=== PATIENT | male | born 1965 | race Caucasian/White ===

== ENCOUNTER 2020-02-18 14:17 | Inpatient (IN) | payer SELFPAY ==
[2020-02-18 14:55] LABS: INTERNATIONAL RATION (INR) 0.97
[2020-02-18 14:56] LABS: PARTIAL THROMBOPLASTIN TIME 23.1 SEC (23.5-35.8)
[2020-02-18 14:59] LABS: ABSOLUTE BASOPHILS # (AUTO) 0.1 10^3/uL (0.0-0.2); ABSOLUTE LYMPHOCYTES (AUTO) 2.1 10^3/uL (0.5-4.7); ABSOLUTE MONOCYTES (AUTO) 1.6 10^3/uL (0.1-1.4); ABSOLUTE NEUT (AUTO) 12.2 10^3/uL (1.7-8.2); BASOPHILS % (AUTO) 0.7 % (0-2); EOSINOPHILS % (AUTO) 0.1 % (0-6); HEMATOCRIT 46.2 % (37.9-51.0); HEMOGLOBIN 16.1 g/dL (13.5-17.0); LYMPHOCYTES % (AUTO) 12.9 % (13-45); MEAN CORPUSCULAR HEMOGLOBIN 28.4 pg (27.0-33.4); MEAN CORPUSCULAR HGB CONC 34.9 g/dL (32.0-36.0); MEAN CORPUSCULAR VOLUME 81 fl (80-97); PLATELET COUNT 243 10^3/uL (150-450); PROTHROMBIN TIME 12.9 SEC (11.4-15.4); RED BLOOD COUNT 5.68 10^6/uL (4.35-5.55); RED CELL DISTRIBUTION WIDTH 14.2 % (11.5-14.0); SEGMENTED NEUTROPHILS % (AUTO) 76.3 % (42-78); TOTAL CELLS COUNTED % (AUTO) 100 %
--- NOTE | 2020-02-18 15:07 | RADIOLOGY REPORT (SQ) ---
EXAM DESCRIPTION: CHEST SINGLE VIEW IMAGES COMPLETED DATE/TIME: 02/18/2020 2:58 pm REASON FOR STUDY: unilateral weakness COMPARISON: None. EXAM PARAMETERS: NUMBER OF VIEWS: One view. TECHNIQUE: Single frontal radiographic view of the chest acquired. RADIATION DOSE: NA LIMITATIONS: None. FINDINGS: LUNGS AND PLEURA: No opacities, masses or pneumothorax. No pleural effusion. MEDIASTINUM AND HILAR STRUCTURES: No masses. Contour normal. HEART AND VASCULAR STRUCTURES: Heart normal in size. Normal vasculature. BONES: No acute findings. HARDWARE: None in the chest. OTHER: No other significant finding. IMPRESSION: NO ACUTE RADIOGRAPHIC FINDING IN THE CHEST. TECHNICAL DOCUMENTATION: JOB ID: [id number] 2010 [employer]- All Rights Reserved Reading location - IP/workstation name: [email or web address]
--- NOTE | 2020-02-18 15:07 | RADIOLOGY REPORT (SQ) ---
EXAM DESCRIPTION: CT HEAD WITHOUT IMAGES COMPLETED DATE/TIME: 02/18/2020 2:56 pm REASON FOR STUDY: unilateral weakness COMPARISON: None. TECHNIQUE: Axial images acquired through the brain without intravenous contrast. Images reviewed wi th bone, brain and subdural windows. Additional sagittal and coronal reconstructions were generated. Images stored on PACS. All CT scanners at this facility use dose modulation, iterative reconstruction, and/or weight based d osing when appropriate to reduce radiation dose to as low as reasonably achievable (ALARA). [facility]: Dose Right [facility]: CareDose [facility]: Dose Right [facility]: Teradose 4D [facility]: Site9 RADIATION DOSE: CT Rad equipment meets quality standard of care and radiation dose reduction techniq ues were employed. CTDIvol: 53.2 mGy. DLP: 1070 mGy-cm. mGy. LIMITATIONS: None. FINDINGS: VENTRICLES: Prominent. CEREBRUM: No masses. No hemorrhage. No midline shift. Areas of low density in the white matter mos t likely due to chronic micro-vascular ischemic change. No evidence for acute infarction. CEREBELLUM: Bilateral decreased attenuation, left greater than right. No hemorrhage. EXTRAAXIAL SPACES: Mild age-related involutional change. No fluid collections. No masses. ORBITS AND GLOBE: No intra- or extraconal masses. Normal contour of globe without masses. CALVARIUM: No fracture. PARANASAL SINUSES: No fluid or mucosal thickening. SOFT TISSUES: No mass or hematoma. OTHER: No other significant finding. IMPRESSION: DECREASED ATTENUATION IN THE CEREBELLUM, LEFT GREATER THAN RIGHT. THIS COULD BE DUE TO INFARCT, OLD VERSUS RECENT. WOULD RECOMMEND FOLLOW-UP MRI OF THE BRAIN. EVIDENCE OF ACUTE STROKE: NO. TECHNICAL DOCUMENTATION: JOB ID: [id number] Quality ID # [id number]: Final reports with documentation of one or more dose reduction techniques (e.g., Au tomated exposure control, adjustment of the mA and/or kV according to patient size, use of iterative reconstruction technique) 2010 [employer]- All Rights Reserved Reading location - IP/workstation name: [email or web address]
[2020-02-18 15:15] LABS: ALBUMIN 4.5 g/dL (3.5-5.0); ALKALINE PHOSPHATASE 86 U/L (38-126); ANION GAP 9 (5-19); ASPARTATE AMINO TRANSFERASE 18 U/L (17-59); BILIRUBIN,DIRECT 0.1 mg/dL (0.0-0.4); BILIRUBIN,TOTAL 0.8 mg/dL (0.2-1.3); BLOOD UREA NITROGEN 22 mg/dL (7-20); CALCIUM 9.4 mg/dL (8.4-10.2); CARBON DIOXIDE 24 mmol/L (22-30); CHLORIDE 104 mmol/L (98-107); CREATINE KINASE 164 U/L (55-170); GLUCOSE 111 mg/dL (75-110); POTASSIUM 3.9 mmol/L (3.6-5.0); TOTAL PROTEIN 8.2 g/dL (6.3-8.2)
[2020-02-18 15:27] LABS: CREATINE KINASE MB 1.43 ng/mL (<4.55); TROPONIN I < 0.012 ng/mL
[2020-02-18] MEDS ORDERED: NORMAL SALINE 1000 ML 1,000 ML IV ONE ×2 (16:09→16:11)
--- NOTE | 2020-02-18 16:19 | ER Document Report ---
ED General - General Chief Complaint: S/S of Possible Stroke Stated Complaint: WEAKNESS Time Seen by Provider: 02/18/20 15:13 - HPI Notes: Chief complaint: Headache, vomiting and left-sided weakness History of present illness: 54-year-old male ordinarily in good general health taking no regular medications with no known allergies and no prior hospitalizations or surgery reports that he was laid off from his job about 3 months ago and he has been at home with a lot of free time on his hands eating a large amount and gaining weight to the amount about 35 pounds. He reports that 3 days ago he developed a severe generalized headache and became nauseated and v omited multiple times. He had some cramping in the abdominal area with this. No associated fever or chills. He subsequently noticed that he had some new left-sided weakness first noted on Friday. He has had difficulty standing and walking. He notes motor impairment of both the left upper and lower extremity. He denies any sensory changes. He denies any difficulty with speech, swallowing or eyesight. He says that he has stumbled several times since then and he has an abrasion of his left periorbital area resulting from a fall. He denies any loss of consciousness associated with this. He notes that his vomiting have resolved. He has some persistent nausea and says he is not been eating and drinking anything other than some water and crackers. The headache lasted only 1 day. He denies any abdominal pain. He denies dysuria. - Related Data Allergies/Adverse Reactions: No Known Allergies Allergy (Verified 02/18/20 14:55) Past Medical History - General Information source: Patient - Social History Smoking Status: Never Smoker Frequency of alcohol use: None Drug Abuse: None Lives with: Family Family History: Reviewed & Not Pertinent - Medical History Medical History: Negative Review of Systems - Review of Systems Notes: Constitutional: Negative for fever. HENT: Negative for sore throat. Eyes: Negative for visual changes. Cardiovascular: Negative for chest pain. Respiratory: Negative for shortness of breath. Gastrointestinal: As per HPI. Genitourinary: Negative for dysuria. Musculoskeletal: Negative for back pain. Skin: Negative for rash. Neurological: As per HPI. 10 point ROS negative except as marked above and in HPI. Physical Exam - Vital signs Vitals: Temp Resp BP Pulse Ox 98.8 F 13 171/84 H 98 02/18/20 14:19 02/18/20 14:19 02/18/20 14:19 02/18/20 14:19 - Notes Notes: GENERAL: Well-developed well-nourished appearing in no acute distress. SKIN: Good turgor no rashes. HEAD: Patient has mild soft tissue swelling over the right periorbital area more superiorly with associated abrasion and mild tenderness to palpation. There is no crepitus. EYES: PERRLA. EOMI. Conjunctivae and sclerae clear. EARS: CANALS AND TMS CLEAR. NOSE: CLEAR. MOUTH: Moist mucosa. Good dentition. No stridor or edema. No drooling. NECK: Supple. No masses or thyromegaly. No adenopathy. Carotids 2+ without bruits. No JVD. BACK: Symmetrical without tenderness. CHEST: Respirations unlabored. Breath sounds clear and symmetrical. HEART: Regular rhythm. No murmur gallop or rub. ABDOMEN: Mildly obese. Soft nontender without masses, organomegaly or rebound. Bowel sounds normally active. No bruits. GENITALIA: Deferred. EXTREMITIES: No edema. No calf tenderness. Cap refill less than 1.5 seconds. Dorsalis pedis and posterior tibial pulses 3+ and symmetrical. NEUROLOGICAL: GCS 15. Alert and oriented x3. Fluent speech. Cranial nerves II through XII intact. Sensory testing normal all 4 extremities and face. Patient has some very subtle drift on motor testing left upper and lower extremity. Finger-nose and [id number] testing normal. Normal tone. PSYCHIATRIC: Appropriate affect. Course - Re-evaluation Re-evalutation: 02/18/20 19:21 Patient presented with findings suggestive of a subacute CVA which probably occurred about 3 days ago. He is clearly outside the window for intervention with lytics or endovascular therapy. I have obtained MRI of the brain which is been reviewed by the radiologist and they report that he has a subacute stroke of the cerebellum on the left as well as evidence of an old infarct in the cerebellum on the right. This is all consistent with patient's clinical presentation. I reviewed findings with patient. Case has been presented to the on-call hospitalist Dr. Buddy Rivera who will admit to [facility]. - Vital Signs Vital signs: Temp Pulse Resp BP Pulse Ox 98.8 F 63 22 H 159/81 H 99 02/18/20 14:55 02/18/20 19:00 02/18/20 19:00 02/18/20 19:00 02/18/20 19:00 - Laboratory Result Diagrams: 02/18/20 14:30 02/18/20 14:30 Laboratory results interpreted by me: 02/18/20 02/18/20 02/18/20 14:30 14:30 14:30 WBC 16.0 H RBC 5.68 H RDW 14.2 H Lymph % (Auto) 12.9 L Absolute Neuts (auto) 12.2 H Absolute Monos (auto) 1.6 H APTT 23.1 L Sodium 136.5 L BUN 22 H Glucose 111 H Discharge - Discharge Clinical Impression: Subacute cerebellar stroke left Condition: Fair Disposition: ADMITTED INPATIENT Admitting Provider: Miguel (Hospitalist) Unit Admitted: [facility]
[2020-02-18] MEDS ORDERED: ONDANSETRON HCL INJ/PF 4 MG/2 ML SDV IV ONE (16:37)
--- NOTE | 2020-02-18 18:45 | RADIOLOGY REPORT (SQ) ---
EXAM DESCRIPTION: MRI HEAD COMBO IMAGES COMPLETED DATE/TIME: 02/18/2020 5:10 pm REASON FOR STUDY: DIEHL and left side weakness since Friday02/15/2020. Fall, headache, nausea, off ba nishi, vomiting, weakness on the left side. Hit left eye on door non. COMPARISON: CT head same date. TECHNIQUE: Multiplanar imaging includes noncontrasted T1, T2, FLAIR, diffusion with ADC map and post gadolinium contrast T1 sequences. Images stored on PACS. CONTRAST TYPE AND DOSE: 20 mL Prohance. RENAL FUNCTION: Not indicated. ACR Type II contrast agent associated with few, if any, unconfounded cases of NSF LIMITATIONS: None. FINDINGS: ANATOMY: No anomalies. Normal vascular flow voids. Pituitary fossa normal. CSF SPACES: Normal in size and contour. No hemorrhage. CEREBRUM: Sulci and gyri normal in size and contour. Mild patchy hyperintense white matter signal on FLAIR imaging. No evidence of hemorrhage, mass, or extraaxial fluid collection. No abnormal enhancem ent post contrast. POSTERIOR FOSSA: There is restricted diffusion and edema involving the left cerebellar hemisphere ext ending to the left cerebellar peduncle measuring at least 3.3 cm. Flattening of the normal contour s uggestive of edema and mild mass effect. No evidence of herniation or obstruction of the 4th ventric le. There is hyperintense T2 signal on T2 and T2 FLAIR involving the right cerebellar hemisphere, de monstrating no corresponding restricted diffusion, consistent with chronic encephalomalacia. DIFFUSION IMAGING: Restricted diffusion involving the left cerebellar hemisphere and peduncle. Mass effect and edema. ORBITS: No masses. Globes normal. PARANASAL SINUSES: No fluid levels. Mucosa normal. OTHER: No other significant finding. IMPRESSION: 1. Acute to subacute ischemia in the left cerebellar hemisphere extending to the left peduncle. Mild mass effect without evidence of herniation or hydrocephalus. 2. Chronic encephalomalacia right cerebellar hemisphere. 3. Mild chronic small vessel ischemic change. EVIDENCE OF ACUTE STROKE: Yes LEFT VERTEBROBASILAR. COMMENT: Findings discussed with doctor Meek on 02/18/2028 at 1839 hours. TECHNICAL DOCUMENTATION: JOB ID: [id number] [employer] All Rights Reserved Reading location - IP/workstation name: [email or web address]
[2020-02-18] MEDS ORDERED: ONDANSETRON HCL INJ/PF 4 MG/2 ML SDV IV PRN (20:29)
[2020-02-18] MEDS ORDERED: DOCUSATE SODIUM 100 MG CAPSULE PO PRN (20:29)
[2020-02-18] MEDS ORDERED: ACETAMINOPHEN 650 MG SUPP.RECT PR PRN (20:29)
[2020-02-18] MEDS ORDERED: MAGNESIUM HYDROXIDE SUSP 30 ML UDCUP PO PRN (20:29)
[2020-02-18] MEDS ORDERED: ACETAMINOPHEN 325 MG TABLET PO PRN (20:29)
[2020-02-18] MEDS ORDERED: LORAZEPAM INJ 2 MG/1 ML VIAL IV PRN (20:37)
[2020-02-18] MEDS ORDERED: MORPHINE SULFATE 10 MG/ML INJ IV PRN (20:37)
[2020-02-18] MEDS ORDERED: MELATONIN 5 MG TABLET PO PRN (20:37)
[2020-02-18] MEDS ORDERED: GUAIFENESIN SYRP 200 MG/10 ML UDC PO PRN (20:37)
[2020-02-18] MEDS: HEPARIN SOD (PORCINE) 5,000 UNIT/ML 1 ML VIAL SUBCUT SCH (22:52)
[2020-02-18] MEDS: CLOPIDOGREL BISULFATE 75 MG TABLET PO SCH (22:52)
[2020-02-18] MEDS: FAMOTIDINE 20 MG TABLET PO SCH (22:52)
--- NOTE | 2020-02-18 23:40 | PDOC H&P ---
History of Present Illness Admission Date/PCP: 02/18/2020 19:45 Patient complains of: No local PCP History of Present Illness: ROSA ISELA RON is a 54 year old male who presented the emergency room with a 3- day history of left-sided weakness. He admits to sudden onset of a severe global headache accompanied by nausea with vomiting and associated with the sudden development of left-sided weakness 3 days ago. His left-sided weakness makes it difficult for him to stand or walk and involves both the left upper and lower extremities. He suffered falls, while trying to walk, without loss of consciousness, but did abrade his face. His left-sided weakness has persisted unchanged since onset, his headache and vomiting are markedly improved and his nausea has diminished though his appetite has been decreased and he is only tolerating crackers and water. He denies other associated or accompanying signs and symptoms. He denies prior similar episodes. He has not identified any aggravating or ameliorating factors for his left-sided weakness. In the emergency room he was found to have an abnormality of the cerebellum on his CT scan and an MRI showed a subacute left cerebellar infarction as well as an old right cerebellar infarction. Patient was subsequently admitted to the hospital for further evaluation and treatment. Past Medical History Cardiac Medical History: Denies: Atrial Fibrillation, Coronary Artery Disease, DVT, Hyperlipidema, Hypertension, Pulmonary Embolism Pulmonary Medical History: Denies: Asthma, Chronic Obstructive Pulmonary Disease (COPD), Sleep Apnea EENT Medical History: Denies: Cataracts, Ears - Hearing aids Neurological Medical History: Denies: Hemorrhagic CVA, Ischemic CVA, Seizures Endocrine Medical History: Reports: Obesity Denies: Diabetes Mellitus Type 1, Diabetes Mellitus Type 2, Hyperthyroidism, Hypothyroidism Renal/ Medical History: Denies: Chronic Kidney Disease, Nephrolithiasis Malignancy Medical History: Reports: None GI Medical History: Denies: Cirrhosis, Crohn's Disease, Gastroesophageal Reflux Disease, Hepatitis, Peptic Ulcer Disease, Ulcerative Colitis Musculoskeltal Medical History: Denies: Arthritis, Gout Skin Medical History: Denies: Eczema, Psoriasis Psychiatric Medical History: Denies: Alcohol Dependency, Substance Abuse, Tobacco Dependency Traumatic Medical History: Reports: None Hematology: Denies: Anemia, Bleeding Tendencies Infectious Medical History: Reports: None Past Surgical History Past Surgical History: Reports: None Social History Information Source: Patient Lives with: Family Smoking Status: Never Smoker Electronic Cigarette use?: No Frequency of Alcohol Use: None Hx Recreational Drug Use: No Drugs: None Hx Prescription Drug Abuse: No - Advance Directive Resuscitation Status: Full Code Surrogate healthcare decision maker:: Leann Ron Family History Family History: Other - Alcoholism: Father. denies: CAD, DM, Hypertension, Malignancy Parental Family History Reviewed: Yes Children Family History Reviewed: No Sibling(s) Family History Reviewed.: Yes Medication/Allergy Allergies/Adverse Reactions: No Known Allergies Allergy (Verified 02/18/20 14:55) Review of Systems Constitutional: PRESENT: as per HPI, anorexia, headache(s), weakness, weight gain - About 35 pounds over the last 3 months. ABSENT: chills, fever(s) Eyes: ABSENT: visual disturbances, other - Eye pain Ears: ABSENT: hearing changes, other - Ear pain Nose, Mouth, and Throat: PRESENT: as per HPI, headache(s). ABSENT: sore throat Cardiovascular: ABSENT: chest pain, palpitations Respiratory: ABSENT: cough, dyspnea Gastrointestinal: PRESENT: as per HPI, abdominal pain - Cramping with vomiting, nausea, vomiting. ABSENT: constipation, diarrhea, hematemesis Genitourinary: ABSENT: dysuria, hematuria Musculoskeletal: ABSENT: back pain, joint swelling Integumentary: ABSENT: pruritus, rash Neurological: PRESENT: as per HPI, abnormal gait - Due to left-sided weakness, has resulted in falls, focal weakness - Left-sided upper and lower extremity, lack of coordination - Left-sided. ABSENT: confusion, convulsions, memory loss, syncope Psychiatric: ABSENT: anxiety, depression Endocrine: ABSENT: cold intolerance, heat intolerance Hematologic/Lymphatic: ABSENT: easy bleeding, easy bruising Allergic/Immunologic: ABSENT: seasonal rhinorrhea Physical Exam Vital Signs: Temp Pulse Resp BP Pulse Ox 98.2 F 63 22 H 159/81 H 99 02/18/20 19:35 02/18/20 19:00 02/18/20 19:00 02/18/20 19:00 02/18/20 19:00 Intake & Output 02/16/20 02/17/20 02/18/20 23:59 23:59 23:59 Weight 136.078 kg General appearance: PRESENT: no acute distress, cooperative, morbidly obese Head exam: PRESENT: normocephalic, other - Left periorbital abrasion Eye exam: PRESENT: conjunctiva pink. ABSENT: conjunctival injection, scleral icterus Ear exam: PRESENT: normal external ear exam. ABSENT: bleeding, drainage Mouth exam: PRESENT: dry mucosa, neck supple Neck exam: ABSENT: thyromegaly, tracheal deviation Respiratory exam: PRESENT: clear to auscultation gabriela, symmetrical, unlabored Cardiovascular exam: PRESENT: RRR. ABSENT: clicks, gallop, rubs Pulses: PRESENT: normal radial pulses, normal dorsalis pedis pul Vascular exam: PRESENT: normal capillary refill. ABSENT: pallor GI/Abdominal exam: PRESENT: normal bowel sounds, soft. ABSENT: tenderness Rectal exam: PRESENT: deferred Extremities exam: ABSENT: joint swelling, pedal edema Musculoskeletal exam: ABSENT: deformity, dislocation Neurological exam: PRESENT: alert, oriented to person, oriented to place, oriented to time, oriented to situation, CN II-XII grossly intact, motor sensory deficit - Left upper and lower extremity 4/5 weakness with 2/5 ataxia on exam. Psychiatric exam: PRESENT: appropriate affect, normal mood Skin exam: PRESENT: abrasion - Left periorbital, dry, warm. ABSENT: jaundice, rash, urticaria Results Laboratory Results: 02/18/20 14:30 02/18/20 14:30 02/18/20 02/18/20 14:30 14:30 WBC 16.0 H RBC 5.68 H Hgb 16.1 Hct 46.2 MCV 81 MCH 28.4 MCHC 34.9 RDW 14.2 H Plt Count 243 Seg Neutrophils % 76.3 Sodium 136.5 L Potassium 3.9 Chloride 104 Carbon Dioxide 24 Anion Gap 9 BUN 22 H Creatinine 1.04 Est GFR ( Amer) > 60 Glucose 111 H Calcium 9.4 Total Bilirubin 0.8 AST 18 Alkaline Phosphatase 86 Total Protein 8.2 Albumin 4.5 02/18/20 02/18/20 14:30 14:30 Creatine Kinase 164 CK-MB (CK-2) 1.43 Troponin I < 0.012 Impressions: Chest X-Ray 02/18/20 14:39 IMPRESSION: NO ACUTE RADIOGRAPHIC FINDING IN THE CHEST. Head CT 02/18/20 14:39 IMPRESSION: DECREASED ATTENUATION IN THE CEREBELLUM, LEFT GREATER THAN RIGHT. THIS COULD BE DUE TO INFARCT, OLD VERSUS RECENT. WOULD RECOMMEND FOLLOW-UP MRI OF THE BRAIN. EVIDENCE OF ACUTE STROKE: NO. Head MRI 02/18/20 16:12 IMPRESSION: 1. Acute to subacute ischemia in the left cerebellar hemisphere extending to the left peduncle. Mild mass effect without evidence of herniation or hydrocephalus. 2. Chronic encephalomalacia right cerebellar hemisphere. 3. Mild chronic small vessel ischemic change. EVIDENCE OF ACUTE STROKE: Yes LEFT VERTEBROBASILAR. Assessment and Plan - Diagnosis (1) Cerebrovascular accident (CVA) due to occlusion of left cerebellar artery Is this a current diagnosis for this admission?: Yes (2) Cerebrovascular disease, unspecified Is this a current diagnosis for this admission?: Yes (3) Morbid obesity Is this a current diagnosis for this admission?: Yes (4) Leukocytosis, unspecified Qualifiers: Leukocytosis type: unspecified Qualified Code(s): D72.829 - Elevated white blood cell count, unspecified Is this a current diagnosis for this admission?: Yes (5) Abrasion of periorbital region of face Qualifiers: Encounter type: initial encounter Qualified Code(s): S00.81XA - Abrasion of other part of head, initial encounter Is this a current diagnosis for this admission?: Yes - Plan Summary Summary: Patient will be admitted to the [facility] where he will receive routine supportive and symptomatic cares. Patient will be on the stroke protocol with all appropriate laboratory, radiographic, consultations and medical interventions. He will use morphine sulfate 2 to 4 mg IV every 2 hours as needed for pain. He will use Ativan 1 mg IV every 4 hours as needed anxiety or restlessness. He will be on a cardiac diet. - Time Time Spent with patient: 15-24 minutes Medications reviewed and adjusted accordingly: No - No home medications Anticipated Discharge Disposition: Home with Home Health Anticipated Discharge: within 72 hours - Inpatient Certification Based on my medical assessment, after consideration of the patient's comorbidities, presenting symptoms, or acuity I expect that the services needed warrant INPATIENT care.: Yes I certify that my determination is in accordance with my understanding of Medicare's requirements for reasonable and necessary INPATIENT services [42 CFR 412.3e].: Yes Medical Necessity: Need Close Monitoring Due to Risk of Patient Decompensation, Need for Neurological Checks, Risk of Complication if Not Cared For in Hospital
[2020-02-19] MEDS ORDERED: MORPHINE SULFATE 10 MG/ML INJ IV PRN ×4 (00:10→00:30)
[2020-02-19] MEDS: ASPIRIN 81 MG TABLET, ENT COATED PO SCH ×2 (01:05→21:37)
[2020-02-19] MEDS: MUPIROCIN 2% OINTMENT 22 GM TP SCH ×4 (01:05→18:05)
[2020-02-19] MEDS: HEPARIN SOD (PORCINE) 5,000 UNIT/ML 1 ML VIAL SUBCUT SCH ×3 (05:42→21:37)
[2020-02-19 06:32] LABS: HEMATOCRIT 44.8 % (37.9-51.0); HEMOGLOBIN 15.2 g/dL (13.5-17.0); MEAN CORPUSCULAR VOLUME 82 fl (80-97); PLATELET COUNT 225 10^3/uL (150-450); RED BLOOD COUNT 5.43 10^6/uL (4.35-5.55); RED CELL DISTRIBUTION WIDTH 14.3 % (11.5-14.0); WHITE BLOOD COUNT 13.7 10^3/uL (4.0-10.5)
[2020-02-19 06:50] LABS: ANION GAP 9 (5-19); BLOOD UREA NITROGEN 19 mg/dL (7-20); CALCIUM 8.6 mg/dL (8.4-10.2); CARBON DIOXIDE 20 mmol/L (22-30); CHLORIDE 107 mmol/L (98-107); CHOLESTEROL 177.96 mg/dL (0-200); GLUCOSE 101 mg/dL (75-110); POTASSIUM 3.9 mmol/L (3.6-5.0); TRIGLYCERIDES 147 mg/dL (<150)
[2020-02-19 06:56] LABS: APPEARANCE,URINE CLEAR; BILIRUBIN,URINE NEGATIVE (NEGATIVE); COLOR,URINE YELLOW; GLUCOSE, URINE NEGATIVE (NEGATIVE); KETONES,URINE TRACE mg/dL (NEGATIVE); PROTEIN,URINE NEGATIVE (NEGATIVE); URINE SPECIFIC GRAVITY 1.027
[2020-02-19 07:01] LABS: DIRECT LDL 122 mg/dL (<100)
--- NOTE | 2020-02-19 08:09 | RADIOLOGY REPORT (SQ) ---
EXAM DESCRIPTION: CAROTID DOPPLER IMAGES COMPLETED DATE/TIME: 02/18/2020 9:52 pm REASON FOR STUDY: Left cerebellar CVA COMPARISON: None. TECHNIQUE: Grayscale ultrasound, Doppler velocity and spectra, and color Doppler images acquired of the extra-cranial carotid and vertebral arteries. Images stored on PACS. LIMITATIONS: None. FINDINGS: RIGHT CAROTID CCA Velocities: Within normal limits. ICA Velocities No velocity elevation. Mild intimal thickening but no significant plaque or vessel narrowing. LEFT CAROTID CCA Velocities: Within normal limits. ICA Velocities No velocity elevation. Mild intimal thickening but no significant plaque or vessel narrowing. VERTEBRAL ARTERIES: Antegrade flow. Normal waveforms. SUBCLAVIAN ARTERIES: No finding. OTHER: No other significant finding. IMPRESSION: NO HEMODYNAMICALLY SIGNIFICANT STENOSIS. COMMENT: Quality ID #[id number]: Velocity criteria are extrapolated from the diameter data as defined by t he Society of Radiologists in Ultrasound Consensus Conference. Radiology 2003: 229; 340-346. TECHNICAL DOCUMENTATION: JOB ID: [id number] 2010 [employer]- All Rights Reserved Reading location - IP/workstation name: [email or web address]
[2020-02-19] MEDS ORDERED: METOCLOPRAMIDE HCL INJ/PF 10 MG/2 ML SDV IV PRN (08:56)
[2020-02-19] MEDS ORDERED: BUTALB/ACETAMINOPHEN/CAFFEINE 1 TAB EACH PO PRN (08:56)
[2020-02-19] MEDS ORDERED: ONDANSETRON HCL INJ/PF 4 MG/2 ML SDV IV PRN (08:57)
[2020-02-19] MEDS: FAMOTIDINE 20 MG TABLET PO SCH ×2 (09:10→21:37)
[2020-02-19] MEDS: CLOPIDOGREL BISULFATE 75 MG TABLET PO SCH (09:10)
--- NOTE | 2020-02-19 10:21 | EKG REPORT ---
SEVERITY:- NORMAL ECG - SINUS RHYTHM : Confirmed by: Isamar Benavides 19-Feb-2020 10:20:38
[2020-02-19] MEDS: LABETALOL HCL INJ 20 MG/4 ML DISP.SYRIN IV PRN ×2 (12:03→18:04)
[2020-02-19] MEDS ORDERED: LOSARTAN POTASSIUM 25 MG TABLET PO ONE (14:05)
--- NOTE | 2020-02-19 14:24 | PDOC PROGRESS REPORT ---
Subjective Progress Note for:: 02/19/20 Subjective:: Patient still having some weakness in his left side. Denies any chest pain or shortness of breath. Patient states he does not have a doctor at this time. Reason For Visit: SUBACUTE LEFT CEREBELLAR CVA Physical Exam Vital Signs: Temp Pulse Resp BP Pulse Ox 97.9 F 65 16 162/75 H 97 02/19/20 11:43 02/19/20 12:00 02/19/20 12:00 02/19/20 12:00 02/19/20 12:00 Intake & Output 02/18/20 02/19/20 02/20/20 06:59 06:59 06:59 Intake Total 2250 0 Output Total 450 Balance 1800 0 Weight 138.9 kg 138.9 kg General appearance: PRESENT: no acute distress, cooperative Eye exam: PRESENT: nystagmus Neck exam: ABSENT: JVD Respiratory exam: PRESENT: clear to auscultation gabriela, unlabored. ABSENT: tachypnea, wheezes Cardiovascular exam: PRESENT: RRR, +S1, +S2. ABSENT: tachycardia GI/Abdominal exam: PRESENT: soft. ABSENT: rebound, rigid, tenderness Neurological exam: PRESENT: alert, awake, oriented to person, oriented to place, oriented to time, oriented to situation, abnormal gait, ataxia - Significant ataxia with overcorrection in his left hand on [id number]-[id number] test. Mild ataxia in both legs, motor sensory deficit - 4/5 in left upper and left lower extremities. 5/5 on the right side. ABSENT: aphasic Results Laboratory Results: 02/19/20 05:57 02/19/20 05:57 02/18/20 02/18/20 02/19/20 14:30 14:30 05:40 WBC 16.0 H RBC 5.68 H Hgb 16.1 Hct 46.2 MCV 81 MCH 28.4 MCHC 34.9 RDW 14.2 H Plt Count 243 Seg Neutrophils % 76.3 Sodium 136.5 L Potassium 3.9 Chloride 104 Carbon Dioxide 24 Anion Gap 9 BUN 22 H Creatinine 1.04 Est GFR ( Amer) > 60 Glucose 111 H Calcium 9.4 Total Bilirubin 0.8 AST 18 Alkaline Phosphatase 86 Total Protein 8.2 Albumin 4.5 Triglycerides Cholesterol LDL Cholesterol Direct VLDL Cholesterol HDL Cholesterol Urine Color YELLOW Urine Appearance CLEAR Urine pH 5.0 Ur Specific [place] 1.027 Urine Protein NEGATIVE Urine Glucose (UA) NEGATIVE Urine Ketones TRACE H Urine Blood NEGATIVE Urine RBC (Auto) 1 02/19/20 02/19/20 05:57 05:57 WBC 13.7 H RBC 5.43 Hgb 15.2 Hct 44.8 MCV 82 MCH 28.0 MCHC 34.0 RDW 14.3 H Plt Count 225 Seg Neutrophils % Sodium 135.8 L Potassium 3.9 Chloride 107 Carbon Dioxide 20 L Anion Gap 9 BUN 19 Creatinine 0.93 Est GFR ( Amer) > 60 Glucose 101 Calcium 8.6 Total Bilirubin AST Alkaline Phosphatase Total Protein Albumin Triglycerides 147 Cholesterol 177.96 LDL Cholesterol Direct 122 H VLDL Cholesterol 29.0 HDL Cholesterol 28 L Urine Color Urine Appearance Urine pH Ur Specific [place] Urine Protein Urine Glucose (UA) Urine Ketones Urine Blood Urine RBC (Auto) 02/18/20 02/18/20 14:30 14:30 Creatine Kinase 164 CK-MB (CK-2) 1.43 Troponin I < 0.012 Impressions: Chest X-Ray 02/18/20 14:39 IMPRESSION: NO ACUTE RADIOGRAPHIC FINDING IN THE CHEST. Head CT 02/18/20 14:39 IMPRESSION: DECREASED ATTENUATION IN THE CEREBELLUM, LEFT GREATER THAN RIGHT. THIS COULD BE DUE TO INFARCT, OLD VERSUS RECENT. WOULD RECOMMEND FOLLOW-UP MRI OF THE BRAIN. EVIDENCE OF ACUTE STROKE: NO. Head MRI 02/18/20 16:12 IMPRESSION: 1. Acute to subacute ischemia in the left cerebellar hemisphere extending to the left peduncle. Mild mass effect without evidence of herniation or hydrocephalus. 2. Chronic encephalomalacia right cerebellar hemisphere. 3. Mild chronic small vessel ischemic change. EVIDENCE OF ACUTE STROKE: Yes LEFT VERTEBROBASILAR. Carotid Doppler Study 02/18/20 20:33 IMPRESSION: NO HEMODYNAMICALLY SIGNIFICANT STENOSIS. Assessment and Plan - Diagnosis (1) Acute cerebrovascular accident (CVA) of cerebellum Is this a current diagnosis for this admission?: Yes Plan: Involving the left cerebellum in the left vertebrobasilar distribution. Has significant ataxia in his left extremities as well as nystagmus and left-sided weakness. Physical and Occupational Therapy Hyperlipidemia noted and patient has been started on atorvastatin 80 mg nightly. Aspirin daily. Plavix x21 days. Antiemetics for nausea vomiting Carotid ultrasound is unremarkable for any hemodynamically significant stenosis. I have reviewed hall monitor and no occult arrhythmias noted. We will continue to keep on telemetry. Echocardiogram Blood pressure control Check hemoglobin A1c (2) Encephalomalacia Is this a current diagnosis for this admission?: Yes Plan: Has area of chronic encephalomalacia in the right cerebellum. It could be that he may have had a previous stroke in this region as well. (3) Hypertension, uncontrolled Is this a current diagnosis for this admission?: Yes Plan: We will start patient on amlodipine and losartan. Monitor BP response. (4) Abrasion of periorbital region of face Qualifiers: Encounter type: initial encounter Qualified Code(s): S00.81XA - Abrasion of other part of head, initial encounter Is this a current diagnosis for this admission?: Yes Plan: Abrasion seems to be healing well. Will monitor. Keep area clean. (5) Leukocytosis, unspecified Qualifiers: Leukocytosis type: unspecified Qualified Code(s): D72.829 - Elevated white blood cell count, unspecified Is this a current diagnosis for this admission?: Yes Plan: No clear evidence of infection at this time. He did have some nausea and vomiting pain but his nausea vomiting likely secondary to his cerebellar stroke and abdominal pain may have simply be secondary to excessive vomiting yesterday and the day before. Chest x-ray does show some vasculature prominence as well as some mild opacity/fullness in his right upper and left upper perihilar region. No overt consolidation noted. Urinalysis negative. May simply be a stress response from his stroke. We will continue to monitor CBC as leukocytosis seems to be improving. (6) Morbid obesity Is this a current diagnosis for this admission?: Yes Plan: Dietitian consult. Check hemoglobin A1c. - Time Time Spent with patient: 15-24 minutes Anticipated Discharge Disposition: Home with Home Health Anticipated Discharge: within 36 hours
[2020-02-19] MEDS: AMLODIPINE BESYLATE 10 MG TABLET PO SCH (16:27)
--- NOTE | 2020-02-19 18:54 | XCELERA REPORT ---
[address] [address] Transthoracic Echocardiogram Report Name: ROSA ISELA RON Age: 54 yrs Gender: Male : 1965 Patient Status: Inpatient Patient Location: [address] [place] [address] Study Date: 02/19/2020 03:55 PM Height: 71 in Weight: 306 lb BSA: 2.5 m2 Procedure: A two-dimensional transthoracic echocardiogram with color flow and Doppler was performed. Study Quality: Fair. Reason For Study: acute cva. with bubble study History: CVA. Ordering Physician: GALI OROZCO Performed By: Reggie Goodman Interpretation Summary There is no obvious cardiac source of embolus noted on this transthoracic echocardiogram. Follow-up with a [facility] is suggested if cardiac source is still suspected. The left ventricle is normal in size. There is mild to moderate concentric left ventricular hypertrophy. LV EF is 65% Left ventricular systolic function is normal. Doppler measurements suggest normal left ventricular diastolic function The left ventricular wall motion is normal. There is no thrombus. No defente ASD,VSD or PFO seen. The right ventricle is normal in size and function. The right ventricle is not well visualized secondary to technical limitations The right atrium is normal in size There is no evidence of mitral valve prolapse. There is no vegetation seen on the mitral valve. There is no mitral valve stenosis. There is a trace amount of mitral regurgitation There is no aortic valvular vegetation. There is no aortic valve stenosis No aortic regurgitation is present. There is no tricuspid stenosis. There is a trace amount of tricuspid regurgitation Tricuspid regurgitation jet envelope not well defined to measure RV systolic pressure accurately. There is no pulmonic valvular stenosis. There is a trace amount of pulmonic regurgitation The aortic root is normal size. The inferior vena cava appeared normal and decreased > 50% with respiration (RAP 5-10 mmHg) There is no pericardial effusion. There is no obvious cardiac source of embolus noted on this transthoracic echocardiogram. Follow-up with a MARGE is suggested if cardiac source is still suspected MMode/2D Measurements & Calculations RVDd: 3.2 cm LVIDd: 4.8 cm FS: 36.4 % Ao root diam: 2.9 cm IVSd: 1.3 cm LVIDs: 3.1 cm EDV(Teich): 108.2 ml Ao root area: 6.4 cm2 LVPWd: 1.3 cm ESV(Teich): 36.7 ml LA dimension: 4.2 cm EF(Teich): 66.1 % Doppler Measurements & Calculations MV E max hang: MV P1/2t max hang: Ao V2 max: LV V1 max P.3 cm/sec 98.7 cm/sec 175.3 cm/sec 7.5 mmHg MV A max hang: MV P1/2t: 60.2 msec Ao max PG: LV V1 max: 53.8 cm/sec MVA(P1/2t): 3.7 cm2 12.3 mmHg 137.2 cm/sec MV E/A: 1.8 MV dec slope: 480.2 cm/sec2 MV dec time: 0.22 sec PA V2 max: MV P1/2t-pr_phl: 147.4 cm/sec 60.2 msec PA max P.7 mmHg Left Ventricle The left ventricle is normal in size. There is mild to moderate concentric left ventricular hypertrophy. LV EF is 65%. Left ventricular systolic function is normal. Doppler measurements suggest normal left ventricular diastolic function. The left ventricular wall motion is normal. There is no thrombus. No defente ASD,VSD or PFO seen. Right Ventricle The right ventricle is normal in size and function. The right ventricle is not well visualized secondary to technical limitations. Atria The right atrium is normal in size. The left atrium is mildly dilated. Mitral Valve There is no evidence of mitral valve prolapse. There is no vegetation seen on the mitral valve. There is no mitral valve stenosis. There is a trace amount of mitral regurgitation. Aortic Valve There is no aortic valvular vegetation. There is no aortic valve stenosis. No aortic regurgitation is present. Tricuspid Valve There is no tricuspid stenosis. There is a trace amount of tricuspid regurgitation. Tricuspid regurgitation jet envelope not well defined to measure RV systolic pressure accurately. Pulmonic Valve There is no pulmonic valvular stenosis. There is a trace amount of pulmonic regurgitation. Great Vessels The aortic root is normal size. The inferior vena cava appeared normal and decreased > 50% with respiration (RAP 5-10 mmHg). Effusions There is no pericardial effusion. : GALI OROZCO Lakshmi
[2020-02-19] MEDS ORDERED: ATORVASTATIN CALCIUM 80 MG TABLET PO SCH (22:00)
[2020-02-19] MEDS ORDERED: ATORVASTATIN CALCIUM 40 MG TABLET PO SCH (22:00)
[2020-02-20] MEDS: HEPARIN SOD (PORCINE) 5,000 UNIT/ML 1 ML VIAL SUBCUT SCH ×2 (05:37→13:15)
[2020-02-20 07:08] LABS: ABSOLUTE BASOPHILS # (AUTO) 0.1 10^3/uL (0.0-0.2); ABSOLUTE EOSINOPHILS # (AUTO) 0.1 10^3/uL (0.0-0.6); ABSOLUTE LYMPHOCYTES (AUTO) 1.7 10^3/uL (0.5-4.7); ABSOLUTE MONOCYTES (AUTO) 1.1 10^3/uL (0.1-1.4); ABSOLUTE NEUT (AUTO) 9.5 10^3/uL (1.7-8.2); BASOPHILS % (AUTO) 0.7 % (0-2); EOSINOPHILS % (AUTO) 0.9 % (0-6); HEMATOCRIT 45.1 % (37.9-51.0); HEMOGLOBIN 15.6 g/dL (13.5-17.0); LYMPHOCYTES % (AUTO) 13.8 % (13-45); MEAN CORPUSCULAR HEMOGLOBIN 28.3 pg (27.0-33.4); MEAN CORPUSCULAR HGB CONC 34.6 g/dL (32.0-36.0); MEAN CORPUSCULAR VOLUME 82 fl (80-97); MONOCYTES % (AUTO) 9.1 % (3-13); PLATELET COUNT 215 10^3/uL (150-450); RED BLOOD COUNT 5.51 10^6/uL (4.35-5.55); RED CELL DISTRIBUTION WIDTH 14.5 % (11.5-14.0); SEGMENTED NEUTROPHILS % (AUTO) 75.5 % (42-78); TOTAL CELLS COUNTED % (AUTO) 100 %; WHITE BLOOD COUNT 12.6 10^3/uL (4.0-10.5)
[2020-02-20 07:23] LABS: ANION GAP 9 (5-19); BLOOD UREA NITROGEN 15 mg/dL (7-20); CALCIUM 8.9 mg/dL (8.4-10.2); CARBON DIOXIDE 22 mmol/L (22-30); CHLORIDE 106 mmol/L (98-107); GLUCOSE 103 mg/dL (75-110); POTASSIUM 3.8 mmol/L (3.6-5.0)
[2020-02-20] MEDS: LABETALOL HCL INJ 20 MG/4 ML DISP.SYRIN IV PRN (08:10)
[2020-02-20] MEDS: AMLODIPINE BESYLATE 10 MG TABLET PO SCH (09:18)
[2020-02-20] MEDS: FAMOTIDINE 20 MG TABLET PO SCH (09:18)
[2020-02-20] MEDS: CLOPIDOGREL BISULFATE 75 MG TABLET PO SCH (09:18)
[2020-02-20] MEDS: MUPIROCIN 2% OINTMENT 22 GM TP SCH ×2 (09:18→13:15)
[2020-02-20] MEDS ORDERED: LOSARTAN POTASSIUM 25 MG TABLET PO SCH ×2 (10:00)
--- NOTE | 2020-02-20 11:46 | Left Against Medical Advice ---
Against Medical Advice Admission Date/Time: 02/18/20 19:37 Primary Care Provider: Date of Patient Emigration: 02/20/20 - Diagnosis: (1) Acute cerebrovascular accident (CVA) of cerebellum Is this a current diagnosis for this admission?: Yes (2) Encephalomalacia Is this a current diagnosis for this admission?: Yes (3) Hypertension, uncontrolled Is this a current diagnosis for this admission?: Yes (4) Abrasion of periorbital region of face Is this a current diagnosis for this admission?: Yes (5) Leukocytosis, unspecified Is this a current diagnosis for this admission?: Yes (6) Morbid obesity Is this a current diagnosis for this admission?: Yes - Summary: Summary: Please see Admission and Progress Notes as well. ROSA ISELA RON is a 54 M, who LEFT AGAINST MEDICAL ADVICE. The Patient was admitted on 02/18/20 19:37. Patient was initially admitted to the hospital for evaluation of stroke. At the time of presentation he had already been out of the TPA window. MRI of the brain revealed acute stroke involving his left cerebellum and extending all the way to his cerebellar peduncle. His deficits were significant for dizziness/disequilibrium, left arm and left leg weakness, horizontal nystagmus and significant ataxia of his left upper extremity and gait. Carotid ultrasound was essentially unremarkable and showed no evidence of hemodynamically significant stenosis. Echocardiogram was performed which showed no evidence of intramural thrombus and showed only LVH. Patient's lipid panel was significant for hyperlipidemia, hemoglobin A1c was normal, telemetry revealed no evidence of A. fib. He was noted to be hypertensive and started on antihypertensives amlodipine and losartan. He was evaluated by physical therapy and subsequently patient was recommended for SNF/a cute rehab. Patient is self-pay and as such I consulted corporate event planner to work on getting patient Medicaid approval. Discharge planning has set up for patient to be evaluated by the Medicaid home health care social worker tomorrow who will see if patient qualifies for Medicaid and if so, patient will then be set up for rehab. However after extensive discussion with patient today, patient has continuously insisted on being discharged home as he wants to go home and take care of his who is disabled herself. Even though his stroke work-up has been completed, I have explained to patient, with his primary nurse present at bedside, that it is unsafe to discharge him home while he is still very unsteady on his feet and that he is highly prone to falling and significantly injuring himself as he has done so even prior to presentation. I have recommended to him that the best thing to do would be to attempt to get him into inpatient rehabilitation pending evaluation by the Medicaid home health care social worker tomorrow. After asked patient means he is risks, he continues to insist to go home. As such I will give patient prescriptions to go home with and have cautioned him on monitor his blood pressure and ensuring adequate follow-up with his home health care social worker, primary care provider and outpatient rehabilitation. He states he can use his 's electric wheelchair at home.
[2020-02-20 13:38] VITALS: BP 170/87
== END 2020-02-20 14:33 | disposition left against medical advice (07) | DRG 65 ==
LOC: ER 14:17 → EH 19:37 → 3S 21:45
PROVIDERS: ADMIT Emergency Medicine; ATTEND Emergency Medicine
PROC: B24BZZZ Ultrasonography of Heart with Aorta (ICD-10-PCS; principal; 2020-02-19)
DX: I63.89 Other cerebral infarction (principal); Z68.41 Body mass index [BMI] 40.0-44.9, adult; G81.94 Hemiplegia, unspecified affecting left nondominant side; G93.89 Other specified disorders of brain; S00.211A Abrasion of right eyelid and periocular area, initial encounter; W19.XXXA Unspecified fall, initial encounter; E66.01 Morbid (severe) obesity due to excess calories; I10 Essential (primary) hypertension; R26.0 Ataxic gait; E78.5 Hyperlipidemia, unspecified
CPT/HCPCS: 36415; 70450; 70553; 71045; 80048; 80053; 80061; 81001; 82550; 82553; 83036; 84484; 85025; 85027; 85610; 85730; 93005; 93010; 93306; 93880; 96361; 96374; 99285; A9576; J1644; J2405; J3490; J7030